=== PATIENT | female | born 1975 | race Caucasian/White ===

== ENCOUNTER 2020-12-08 17:17 | Emergency (ER) | payer SELFPAY ==
[2020-12-08] MEDS ORDERED: NA CHLORIDE 0.9% 1,000 ML ONE (18:12)
[2020-12-08 18:19] LABS: Urine Blood 1+ (Negative); Urine Glucose Negative (Negative); Urine Protein Negative (Negative); Urine Specific Gravity >=1.030 (1.005-1.030)
[2020-12-08 18:20] LABS: Absolute Lymphocytes (CBC) 1.9 K/uL (0.7-4.9); Basophils % 0.4 % (0-1.3); Hematocrit 36.7 % (36.0-45.0); Lymphocytes % 12.8 % (15.3-44.8); MPV 8.7 fL (7.6-11.3); RBC Red Blood Cell Count 3.83 M/uL (3.86-4.86)
[2020-12-08 18:39] LABS: Albumin 3.8 g/dL (3.4-5.0); Bilirubin Direct 0.1 mg/dL (0-0.2); Bilirubin Total 0.4 mg/dL (0.2-1.0); Potassium 3.9 mmol/L (3.5-5.1); Protein, Total 7.3 g/dL (6.4-8.2)
[2020-12-08] MEDS ORDERED: ONDANSETRON 4 MG/2 ML VIAL ONE (19:05)
[2020-12-08] MEDS ORDERED: MORPHINE 2 MG/ML SYR ONE (19:05)
[2020-12-08 19:28] LABS: Urine Specific Gravity/Preg >1.030 (1.005-1.030)
[2020-12-08 19:28] LABS: Urine Specific Gravity/Preg >1.030 (1.005-1.030)
--- NOTE | 2020-12-08 19:40 | RAD REPORT ---
EXAM DESCRIPTION: CTAbdomen Pelvis W Contrast - 12/08/2020 7:23 pm CLINICAL HISTORY: ABD PAIN COMPARISON: No comparisons TECHNIQUE: CT of the abdomen and pelvis was performed. All CT scans are performed using dose optimization technique as appropriate and may include automated exposure control or mA/KV adjustment according to patient size. FINDINGS: Lower chest: No acute abnormality. Liver: No acute abnormality or suspicious lesions. Biliary: Cholelithiasis. Stomach: No significant focal abnormality. Duodenum: No significant focal abnormality. Pancreas: No significant abnormality. Spleen: No significant abnormality. Adrenal: No suspicious lesions. Kidney/ureter: No hydronephrosis. No renal calculi. Retroperitoneum: No retroperitoneal adenopathy. Vascular: No aneurysm. Atherosclerosis. Bowel: No significant focal abnormality. Peritoneum: Moderate volume free fluid in the pelvis. Bladder: Grossly unremarkable. Reproductive: Tubal ligation clips. Bones: No acute fracture. Other: n/a IMPRESSION: Small to moderate volume of hemoperitoneum which is likely related to a ruptured ovarian cyst.
--- NOTE | 2020-12-08 21:28 | RAD REPORT ---
EXAM DESCRIPTION: US - Pelvis Complete - 12/08/2020 8:52 pm CLINICAL HISTORY: Possible ruptured ovarian cyst;Pain Pelvic pain. COMPARISON: Abdomen Pelvis W Contrast dated 12/08/2020 FINDINGS: The uterus measures 9 cm in long axis. The endometrial echo complex measures 8 millimeters . The right ovary measures 2.7 x 1.6 x 3.1 cm with volume of 6.8 cc. The left ovary measures 6.6 x 3. 7 x 3 cm with volume of 38.7 cc. A simple appearing cyst measuring 3.7 cm is present. Vascular flow i s present bilaterally. Moderate echogenic fluid is present within the cul-de-sac. IMPRESSION: Bilateral ovarian blood flow.Imaging fluid in the pelvis consistent with hemoperitoneum as noted on the CT.
--- NOTE | 2020-12-08 21:50 | ER ---
Nurse's Notes [facility] Name: Marilyn Cuadra Age: 45 yrs Sex: Female : 1975 Arrival Date: 12/08/2020 Time: 17:18 Bed 18 Private MD: Diagnosis: Lower abdominal pain, unspecified;Pelvic and perineal pain;Other ovarian cysts-ruptured;UTI/ Urinary tract infection, site not specified Presentation: 12/08 17:35 Chief complaint: Patient states: pain from belly button down to her pelvic area since iw this afternoon, feels pressure in her rectum, has had normal BM today, denies urinary s/s denies nausea/vomiting , hx of ruptured ovarian cyst. Coronavirus screen: At this time, the client does not indicate any symptoms associated with coronavirus-19. Ebola Screen: Patient negative for fever greater than or equal to 101.5 degrees Fahrenheit, and additional compatible Ebola Virus Disease symptoms Patient denies exposure to infectious person. Patient denies travel to an Ebola-affected area in the 21 days before illness onset. No symptoms or risks identified at this time. Initial Sepsis Screen: Does the patient meet any 2 criteria? No. Patient's initial sepsis screen is negative. Does the patient have a suspected source of infection? No. Patient's initial sepsis screen is negative. Risk Assessment: Do you want to hurt yourself or someone else? Patient reports no desire to harm self or others. Onset of symptoms was December 08, 2020. 17:35 Method Of Arrival: Ambulatory iw 17:35 Acuity: KAYA 3 iw 20:31 Note Provider at bedside to discuss CT scan results. Pt to have Abdominal US. df1 21:01 Note Pt returned from US. df1 21:45 Note Provider at bedside to discuss results. Pt to be dc'd home with family. 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 - Social history:: Smoking status: Patient reports the use of cigarette tobacco products, smokes one pack cigarettes per day. - Family history:: not pertinent. Screenin:44 Abuse screen: Denies threats or abuse. Nutritional screening: No deficits noted. sl2 Tuberculosis screening: No symptoms or risk factors identified. Fall Risk None identified. Assessment: 17:44 Pain:. sl2 18:00 General: Appears uncomfortable, Behavior is cooperative, Reports Lower abdominal and sl2 pelvic pain that radiates to rectum. Pain: Complains of pain in lower abdomen from umbilicus to pelvis - radiates to rectum Pain radiates to rectum Pain currently is 8 out of 10 on a pain scale. Quality of pain is described as pressure, sharp, Pain began gradually, Alleviated by repositioning, Aggravated by increased activity, Noted to be grimacing, guarding, moaning, resistant to movement. Neuro: No deficits noted. Cardiovascular: No deficits noted. Respiratory: No deficits noted. GI: Reports lower abdominal pain, Patient currently denies constipation. : No deficits noted. EENT: No deficits noted. Derm: No deficits noted. Musculoskeletal: No deficits noted. Vital Signs: 17:35 BP 126 / 95; Pulse 113; Resp 18 S; Temp 98.1; Pulse Ox 100% on R/A; Weight 63.5 kg; iw Height 5 ft. 6 in. (167.64 cm); Pain 10/10; 18:00 BP 128 / 87; Pulse 89; Resp 18; Temp 98.2; Pulse Ox 100% on R/A; sl2 18:51 BP 113 / 75; Pulse 89; Resp 18; Temp 98.4; Pulse Ox 99% on R/A; sl2 20:00 BP 108 / 76; Pulse 85; Resp 18; Pulse Ox 98% on R/A; df1 21:00 BP 115 / 78; Pulse 82; Resp 18; Pulse Ox 99% on R/A; df1 17:35 Body Mass Index 22.60 (63.50 kg, 167.64 cm) iw ED Course: 17:18 Patient arrived in ED. ds1 17:35 Linda Holley MD is Attending Physician. ma2 17:37 Triage completed. iw 17:39 Arm band placed on. iw 17:43 Micaela Harmon RN is Primary Nurse. sl2 17:44 Patient has correct armband on for positive identification. sl2 17:45 Inserted saline lock: 22 gauge in right antecubital area, using aseptic technique. sl2 18:49 Urine --Ancillary (enter results) Sent. sl2 19:01 Attending Physician role handed off by Linda Holley MD [facility] 19:01 Jordon Tan MD is Attending Physician. 7 19:08 Urine --Ancillary Sent. ae4 19:23 CT Abd/Pelvis - IV Contrast Only In Process Unspecified. EDMS 20:52 US Pelvis Complete In Process Unspecified. EDMS 21:48 Lucina Carpenter MD is Referral Physician. [facility] 22:01 No provider procedures requiring assistance completed. IV discontinued, intact. df1 Administered Medications: 17:50 Drug: NS 0.9% 1000 ml Route: IV; Rate: 1 bolus; Site: right antecubital; 2 19:02 Follow up: Response: No adverse reaction; IV Status: Completed infusion; IV Intake: sl2 1000ml 18:40 Drug: Zofran (Ondansetron) 4 mg Route: IVP; Site: right antecubital; sl2 19:01 Follow up: Response: No adverse reaction sl2 18:49 Drug: morphine 4 mg Route: IVP; Site: right antecubital; sl2 19:01 Follow up: Response: No adverse reaction; Pain is decreased sl2 Intake: 19:02 IV: 1000ml; Total: 1000ml. 2 Outcome: 21:50 Discharge ordered by . 7 22:01 Discharged to home ambulatory. df1 22:01 Condition: good 22:01 Discharge instructions given to patient, significant other, Instructed on discharge instructions, follow up and referral plans. medication usage, Demonstrated understanding of instructions, follow-up care, medications, Prescriptions given X 2. 22:02 Patient left the ED. df1 Signatures: Dispatcher [employer] EDME Savanah Feliz ds1 Azucena Matos, ELDER FRIEDMAN iw Linda Holley MD MD ma2 Elliott, Andrea, RN RN ae4 Jordon Tan MD MD [facility] Alicia Nevarez df1 iMcaela Harmon RN RN sl2
--- NOTE | 2020-12-08 21:51 | EDPHYS ---
Physician Documentation [facility] Name: Marilyn Cuadra Age: 45 yrs Sex: Female : 1975 Arrival Date: 12/08/2020 Time: 17:18 Bed 18 Private MD: ED Physician Jordon Tan HPI: 12/08 18:31 This 45 yrs old Female presents to ER via Ambulatory with complaints of Belly ma2 Button Pain, Rectal Pain. 18:31 Onset: The symptoms/episode began/occurred gradually, 1 hour(s) ago. Associate signs ma2 and symptoms: Pertinent negatives: constipation, dysuria, lower GI bleeding, vomiting. Lower abdominal pain, for 1 hour moderate, constant.. 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 - Social history:: Smoking status: Patient reports the use of cigarette tobacco products, smokes one pack cigarettes per day. - Family history:: not pertinent. ROS: 18:31 Constitutional: Negative for fever, chills, and weight loss. ma2 18:31 All other systems are negative. Exam: 18:31 Constitutional: This is a well developed, well nourished patient who is awake, alert, ma2 and in no acute distress. Neck: Trachea midline, no thyromegaly or masses palpated, and no cervical lymphadenopathy. Supple, full range of motion without nuchal rigidity, or vertebral point tenderness. No Meningismus. Chest/axilla: Normal chest wall appearance and motion. Nontender with no deformity. No lesions are appreciated. Cardiovascular: Regular rate and rhythm with a normal S1 and S2. No gallops, murmurs, or rubs. Normal PMI, no JVD. No pulse deficits. Respiratory: Lungs have equal breath sounds bilaterally, clear to auscultation and percussion. No rales, rhonchi or wheezes noted. No increased work of breathing, no retractions or nasal flaring. Abdomen/GI: Soft, non-tender, with normal bowel sounds. No distension or tympany. No guarding or rebound. No evidence of tenderness throughout. Back: No spinal tenderness. No costovertebral tenderness. Full range of motion. Skin: Warm, dry with normal turgor. Normal color with no rashes, no lesions, and no evidence of cellulitis. MS/ Extremity: Pulses equal, no cyanosis. Neurovascular intact. Full, normal range of motion. Neuro: Awake and alert, GCS 15, oriented to person, place, time, and situation. Cranial nerves II-XII grossly intact. Motor strength 5/5 in all extremities. Sensory grossly intact. Cerebellar exam normal. Normal gait. Vital Signs: 17:35 BP 126 / 95; Pulse 113; Resp 18 S; Temp 98.1; Pulse Ox 100% on R/A; Weight 63.5 kg; iw Height 5 ft. 6 in. (167.64 cm); Pain 10/10; 18:00 BP 128 / 87; Pulse 89; Resp 18; Temp 98.2; Pulse Ox 100% on R/A; sl2 18:51 BP 113 / 75; Pulse 89; Resp 18; Temp 98.4; Pulse Ox 99% on R/A; sl2 20:00 BP 108 / 76; Pulse 85; Resp 18; Pulse Ox 98% on R/A; df1 21:00 BP 115 / 78; Pulse 82; Resp 18; Pulse Ox 99% on R/A; df1 17:35 Body Mass Index 22.60 (63.50 kg, 167.64 cm) iw MDM: 17:36 Patient medically screened. ma2 18:31 Differential diagnosis: UTI, rupture ovarian cyst, versus ectopic , versus ma2 appendicitis. 21:47 Data reviewed: vital signs, nurses notes, lab test result(s), CBC, electrolytes, mh7 urinalysis, radiologic studies, CT scan, ultrasound. Data interpreted: Pulse oximetry: on room air is 99 %. Interpretation: normal. Counseling: I had a detailed discussion with the patient and/or guardian regarding: the historical points, exam findings, and any diagnostic results supporting the discharge/admit diagnosis, lab results, radiology results, the need for outpatient follow up, an OB/Gyne specialist, to return to the emergency department if symptoms worsen or persist or if there are any questions or concerns that arise at home. Response to treatment: the patient's symptoms have resolved after treatment, the patient's blood pressure is in an acceptable range, mental status has returned to baseline, the patient no longer shows bradycardia, the patient is not short of breath, the patient is not tachycardic, the patient's pain is gone, the patient's temperature has normalized. 12/08 17:41 Order name: Basic Metabolic Panel; Complete Time: 18:54 ma2 12/08 17:41 Order name: CBC with Diff; Complete Time: 18:54 ma2 12/08 17:41 Order name: Hepatic Function; Complete Time: 18:54 ma2 12/08 17:41 Order name: Lipase; Complete Time: 18:54 ma2 12/08 18:18 Order name: Urine Dipstick-Ancillary; Complete Time: 18:54 EDMS 12/08 18:20 Order name: Urine --Ancillary (enter results) tt3 12/08 18:20 Order name: Urine --Ancillary; Complete Time: 19:51 EDMS 12/08 18:54 Order name: CT Abd/Pelvis - IV Contrast Only; Complete Time: 19:51 ma2 12/08 19:11 Order name: Urine --Ancillary (enter results) tt3 12/08 19:12 Order name: Urine --Ancillary; Complete Time: 19:51 EDMS 12/08 20:02 Order name: US Pelvis Complete; Complete Time: 21:34 mh7 12/08 17:41 Order name: IV Saline Lock; Complete Time: 18:16 ma2 12/08 17:41 Order name: Labs collected and sent; Complete Time: 18:16 ma2 12/08 17:41 Order name: Urine Dipstick-Ancillary (obtain specimen); Complete Time: 18:20 ma2 12/08 17:41 Order name: Urine Test (obtain specimen); Complete Time: 18:20 ma2 Administered Medications: 17:50 Drug: NS 0.9% 1000 ml Route: IV; Rate: 1 bolus; Site: right antecubital; sl2 19:02 Follow up: Response: No adverse reaction; IV Status: Completed infusion; IV Intake: sl2 1000ml 18:40 Drug: Zofran (Ondansetron) 4 mg Route: IVP; Site: right antecubital; sl2 19:01 Follow up: Response: No adverse reaction 2 18:49 Drug: morphine 4 mg Route: IVP; Site: right antecubital; sl2 19:01 Follow up: Response: No adverse reaction; Pain is decreased sl2 Disposition Summary: 12/08/20 21:50 Discharge Ordered Location: Home [facility] Problem: an acute exacerbation [facility] Symptoms: have improved [facility] Condition: Stable [facility] Diagnosis - Lower abdominal pain, unspecified mh7 - Pelvic and perineal pain 7 - Other ovarian cysts - ruptured 7 - UTI/ Urinary tract infection, site not specified [facility] Followup: [facility] - With: Private Physician - When: 1 - 2 days - Reason: Worsening of condition, Recheck today's complaints, Continuance of care, Re-evaluation by your physician Followup: [facility] - With: Lucina Carpenter MD - When: 1 - 2 days - Reason: Worsening of condition, Recheck today's complaints Discharge Instructions: - Discharge Summary Sheet [facility] - Pelvic Pain, Female [facility] - Urinary Tract Infection, Adult, [id number] [facility] - Abdominal Pain, Adult, [id number] 7 - Ovarian Cyst, [id number] [facility] Forms: - Medication Reconciliation Form [facility] - Thank You Letter [facility] - Antibiotic Education [facility] - Prescription Opioid Use [facility] Prescriptions: - Bactrim DS 800-160 mg Oral Tablet - take 1 tablet by ORAL route every 12 hours for 7 days; 14 tablet; Refills: 0, [facility] Product Selection Permitted - Tylenol-Codeine #3 300 mg-30 mg Oral - take 2 tablet by ORAL route every 6 hours As needed; 15 tablet; Refills: 0, [facility] Product Selection Permitted Signatures: Dispatcher [employer] Azucena Mcgraw, RN ELDER Linda Holley MD MD fl2 Jordon Tan MD MD 7 Micaela Harmon RN RN sl2
[2020-12-08 22:11] VITALS: TEMP 98.4
[2020-12-08 22:14] VITALS: BP 115/78; O2SAT 99
[2020-12-08] MEDS ORDERED: SMZ./TMP. 800/160 MG TABLET ONE (22:16)
== END 2020-12-08 22:02 | disposition home or self-care (01) ==
LOC: ER 17:17
DX: N39.0 Urinary tract infection, site not specified (principal); N83.299 Other ovarian cyst, unspecified side; R10.2 Pelvic and perineal pain; F17.210 Nicotine dependence, cigarettes, uncomplicated; Z88.0 Allergy status to penicillin; Z88.3 Allergy status to other anti-infective agents; Z88.8 Allergy status to other drugs, medicaments and biological substances
CPT/HCPCS: 36415; 74177; 76856; 80048; 80076; 81003; 81025; 83690; 85025; 96361; 96374; 96375; 99284; J2270; J2405; J7030; Q9967

== ENCOUNTER 2022-01-20 07:04 | Day surgery (SDC) | payer BC ==
--- NOTE | 2022-01-17 15:44 | RAD REPORT ---
EXAM DESCRIPTION: RAD - Chest Pa And Lat (2 Views) - 01/17/2022 3:36 pm CLINICAL HISTORY: Pre op pending cholecystectomy Chest pain. COMPARISON: No comparisons FINDINGS: The lungs are clear. The heart is normal in size. No displaced fractures. IMPRESSION: No acute or concerning finding suspected.
[2022-01-17 15:47] LABS: Absolute Lymphocytes (CBC) 2.2 K/uL (0.7-4.9); Hematocrit 39.2 % (36.0-45.0); Lymphocytes % 19.3 % (15.3-44.8); MCV 96.8 fL (80-100); MPV 8.2 fL (7.6-11.3); RBC Red Blood Cell Count 4.05 M/uL (3.86-4.86)
[2022-01-17 15:59] LABS: Albumin 3.7 g/dL (3.4-5.0); Bilirubin Direct 0.1 mg/dL (0-0.2); Bilirubin Total 0.3 mg/dL (0.2-1.0); Potassium 3.7 mmol/L (3.5-5.1); Protein, Total 7.6 g/dL (6.4-8.2)
[2022-01-20] MEDS ORDERED: CEFOXITIN SODIUM 1 GM/VIAL ONE (07:37)
[2022-01-20] MEDS ORDERED: Ringers Lactate 1,000 ML IV ONE (07:37)
[2022-01-20] MEDS ORDERED: MIDAZOLAM HCL 2 MG/2 ML INJ ONE (08:04)
[2022-01-20] MEDS ORDERED: FENTANYL CITR 100 MCG/2 ML ONE (08:04)
[2022-01-20] MEDS ORDERED: KETOROLAC 30 MG/ML INJ ONE (08:04)
[2022-01-20] MEDS ORDERED: dexAMETHasone 10 MG/ML VIAL ONE (08:04)
[2022-01-20] MEDS ORDERED: propofoL 200 MG/20 ML VIAL IV ONE (08:04)
[2022-01-20] MEDS ORDERED: LIDOCAINE 2% MPF 5 ML VIAL ONE (08:04)
[2022-01-20] MEDS ORDERED: ONDANSETRON 4 MG/2 ML VIAL ONE (08:05)
[2022-01-20] MEDS ORDERED: ROCURONIUM 50 MG/5 ML VIAL IV ONE (08:05)
[2022-01-20] MEDS ORDERED: CIPROFLOXACIN 400mg IV 400 MG/200 ML BAG IV ONE (08:30)
[2022-01-20 08:56] LABS: Urine Specific Gravity/Preg >1.030 (1.005-1.030)
--- NOTE | 2022-01-20 09:37 | P.BOP ---
Preoperative diagnosis: symptomatic cholelithiasis, acute cholecystitis, Biliary dyskinesia Postoperative diagnosis: same, umbilical hernia Primary procedure: 1. Laparoscopic cholecystectomy Secondary procedure: 2. umbilical hernia repair Accreditation Coordinator: YOSEPH RUEDA (STAFFING MANAGER) Estimated blood loss: <10cc Specimen: gb Findings: as above Anesthesia: General Complications: None Transferred to: Recovery Room Condition: Good
[2022-01-20] MEDS: HYDROMORPHONE HCL 1 MG/ML INJ ONE ×2 (10:14→10:20)
[2022-01-20 10:16] VITALS: O2SAT 100
[2022-01-20 10:47] VITALS: BP 130/74; TEMP 97.4
--- NOTE | 2022-01-20 13:55 | EKG ---
Test Date: 2022-01-17 Test Time: 15:16:37 Clinical Biostatistics Director: MARQUES MEASUREMENT RESULTS: Intervals: Rate: 90 DE: 134 QRSD: 76 QT: 356 QTc: 435 [place]: P: 86 DE: 134 QRS: 88 T: 70 INTERPRETIVE STATEMENTS: Normal sinus rhythm Normal ECG No previous ECG available for comparison Electronically Signed On 01-20-22 13:51:02 FORM DESIGNER by Aldair Aguirre
--- NOTE | 2022-01-20 23:57 | OP ---
Date of Procedure: 01/20/2022 Surgeon: Jeffrey Bro MD Production Technician: Gisel Boyle. Preoperative Diagnoses: Symptomatic cholelithiasis, acute cholecystitis, biliary dyskinesia. Postoperative Diagnoses: Symptomatic cholelithiasis, acute cholecystitis, biliary dyskinesia, plus u mbilical hernia. Procedures: 1.Laparoscopic cholecystectomy. 2.Umbilical hernia repair. Estimated Blood Loss: Less than 10 cc. Specimen: Gallbladder and hernia sac. Findings: Patient has an inflamed gallbladder. Also have an umbilical hernia. Anesthesia: General plus local. Complications: None. Indication: This is the case of a 46-year-old patient who comes to us with the above diagnoses. Ful ly explained the benefits, alternatives, and risks of laparoscopic possible open cholecystectomy whic h include, but not limited to infection, bleeding, damage to adjacent structures as complication, cho ledocholithiasis, bile leak, pancreatitis, [place], and even . She also understands this may not rel ieve symptoms. She might need more than one surgical intervention. She understood, signed the conse nt. She says she was told she had umbilical hernia at present. I explained to her that if we encoun tered the umbilical hernia, we might have to repair that at the same time with the same risks mention ed above. She understood, signed a consent. Procedure In Detail: The patient was brought to the operating room, placed in supine position. Anes thesia was done without complication. Abdominal area was prepped and draped in sterile fashion. Mar rachel 0.5% was injected for local anesthetic, followed by sharp incision of the skin in the infraumbi lical region. Incision was carried down to fascia. We noticed the patient to have an umbilical marquita ia with some incarcerated omentum that was carefully reduced back into the abdominal cavity. Hernia sac was removed. The fascial edges were cleaned. We utilized that incision to extend a little bit m ore to accommodate my Shyanne trocar after placing Vicryl #1 inside of the fascia. Shyanne trocar was carefully introduced. Pneumoperitoneum was obtained. I placed 3 more trocars, 5 mm each one of them in the right upper quadrant under direct visualization. This allowed me to put a grasper in the fun dus of the gallbladder, another grasper in the infundibulum, retracting the gallbladder in the infero lateral fashion, exposing the triangle of Calot, obtaining critical view. The cystic duct and cystic artery were clearly isolated, freed circumferentially, and a connection between those and the gallbl adder were clearly identified. I proceeded to ligate those by using at least 3 clips proximal, 1 cli p distal, ligation in middle. Same was done with the cystic artery. No bile leak, no bleeding. The gallbladder was removed from liver using Bovie cauterizer and removed from abdominal cavity using En doCatch through the umbilical incision. The area was inspected once again, no bile leak. No bleedin g. Clips were intact after irrigation. At that moment, I proceeded to remove the trocars under dire ct vision, deflated pneumoperitoneum, closed the fascia and umbilical hernia with #1 Vicryl. Irrigat ed subcutaneous tissue, closed that with 3-0 chromic, and skin in a subcuticular fashion with 3-0 chr omic and Steri-Strips on top. Sponge count, instrument counts correct. Patient tolerated the proced ure well. Patient was sent to recovery in stable condition. DALLIN/JENY Voice ID: [id number] Report ID: [id number]
--- NOTE | 2022-01-20 23:57 | OP ---
Surgeon: Jeffrey Bro MD Diagnoses: Symptomatic cholelithiasis, acute cholecystitis, biliary dyskinesia, and umbilical hernia . Procedure: Laparoscopic cholecystectomy and umbilical hernia repair. Disposition: Home. Activity: As tolerated. Instructions: No heavy lifting. Follow up in my office in 1 week. Call for appointment at [phone] . Keep area dry for 48 hours, then may shower. Keep Steri-Strips intact. DALLIN/JENY Voice ID: [id number] Report ID: [id number]
== END 2022-01-20 11:10 | disposition home or self-care (01) ==
LOC: PRE 07:04 → OR 11:10
PROVIDERS: ATTEND Surgery
PROC: 0FT44ZZ Resection of Gallbladder, Percutaneous Endoscopic Approach (ICD-10-PCS; principal; 2022-01-20 08:30)
DX: K80.10 Calculus of gallbladder with chronic cholecystitis without obstruction (principal); K42.9 Umbilical hernia without obstruction or gangrene; K82.8 Other specified diseases of gallbladder
CPT/HCPCS: 93005; 85025; 80048; 36415; 82150; 81025; 80076; 88302; 88304; 83690; 71046; 47562; J2704; J2001; J2250; J3010; J1100; J1170; J7120; J2405; J0744; J0694